=== PATIENT | male | born 1990 | race Two or more races ===

== ENCOUNTER 2017-10-14 11:52 | Emergency (ER) | payer SELFPAY ==
[~2017-10-14] VITALS: Ht 182.9 cm; Wt 70.3 kg
[2017-10-14 12:59] VITALS: BP 128/64
[2017-10-14] MEDS ORDERED: cefTRIAXone SOD 1,000 MG VL ONE (13:13)
[2017-10-14] MEDS ORDERED: LIDOCAINE 1% HCL (LOCAL ANESTH.) INJ 20ML MDV IJ ONE (13:15)
[2017-10-14] MEDS ORDERED: NEOMYCIN-BACITRACIN-POLYM UNITDOSE PKG TOP OINT TOP ONE (13:15)
[2017-10-14] MEDS ORDERED: cefTRIAXone SOD 1,000 MG VL IM ONE (13:15)
[2017-10-14] MEDS ORDERED: TETANUS-DIPTH-ACEL PERTUSSIS 0.5ML SYRG IM ONE (13:15)
[2017-10-14] MEDS ORDERED: HYDROcodone-ACET 10/325MG TAB PO ONE (13:45)
[2017-10-15] MEDS ORDERED: IPRATROPIUM BROM 0.5 MG/2.5ML INH SOL ONE (03:21)
[2017-10-15] MEDS ORDERED: ALBUTEROL SULF 2.5 MG/0.5ML(0.5%) NEB SOLN ONE (03:21)
[2017-10-15] MEDS ORDERED: EPINEPHrine HCL 1 MG/1 ML AMP ONE (03:36)
== END 2017-10-14 13:59 | disposition home or self-care (01) ==
LOC: ER 11:52
DX: S81.811A Laceration without foreign body, right lower leg, initial encounter (principal); V28.4XXA Motorcycle driver injured in noncollision transport accident in traffic accident, initial encounter; Y93.89 Activity, other specified; Y99.8 Other external cause status; Y92.410 Unspecified street and highway as the place of occurrence of the external cause
CPT/HCPCS: 12002; 73590; 90471; 90715; 96372; 99284; J0696; J2001

== ENCOUNTER 2018-03-07 11:53 | Emergency (ER) | payer MEDICAID ==
[~2018-03-07] VITALS: Ht 182.9 cm; Wt 68.0 kg
[2018-03-07 12:00] VITALS: BP 129/93
== END 2018-03-07 13:44 | disposition home or self-care (01) ==
LOC: ER 11:53
DX: S43.102A Unspecified dislocation of left acromioclavicular joint, initial encounter (principal); S81.012A Laceration without foreign body, left knee, initial encounter; W18.39XA Other fall on same level, initial encounter; Y93.89 Activity, other specified; Y92.89 Other specified places as the place of occurrence of the external cause; Y99.8 Other external cause status
CPT/HCPCS: 73000; 73030